=== PATIENT | female | born 1950 | race Asian ===

== ENCOUNTER 2018-06-29 22:34 | Inpatient (IN) | payer OTHER, MEDICAID ==
[~2018-06-29] VITALS: Ht 149.9 cm; Wt 61.7 kg
[2018-06-29 22:34] VITALS: BP_SYST 145
--- NOTE | 2018-06-29 22:34 | NUR ---
Patient to ER bed 4 to gown for evaluation. Side rails up.
--- NOTE | 2018-06-29 22:35 | NUR ---
ER Dr. Tesfaye at bedside examining patient.
[2018-06-29] MEDS ORDERED: NS 1000 ML IV.SOLN IV ONE (22:45)
[2018-06-29] MEDS ORDERED: ACETAMINOPHEN 325 MG TABLET PO ONE (22:45)
[2018-06-29] MEDS ORDERED: cefTRIAXone 1 GM IVPB PREMIX 50 ML IV ONE (22:45)
--- NOTE | 2018-06-29 23:34 | NUR ---
IVF initiated, 1L NS in ED. Per paramedics, pt received 1 Liter of NS.
--- NOTE | 2018-06-29 23:34 | NUR ---
Pt came in with 20 gauge to Right AC placed by paramedics.
--- NOTE | 2018-06-29 23:49 | NUR ---
Verbal order received from Dr. Tesfaye for indwelling catheter and to collect urine.
--- NOTE | 2018-06-29 23:58 | NUR ---
# 16 FR Crawford catheter with use of sterile technique. Immediate return of 650 cc dark yellow urine noted. Bedside drainage bag placed below level of bladder. Urine sample collected and sent to lab. Pt tolerated procedure well.
[2018-06-30 00:07] LABS: HEMATOCRIT 43.3 % (36-48); HEMOGLOBIN 13.7 g/dL (12.0-16.0); MEAN CORPUSCULAR HEMOGLOBIN 29 pg (27-31); MEAN CORPUSCULAR HGB CONC 32 % (32-36); MEAN CORPUSCULAR VOLUME 93 fL (79.0-98.0); RED BLOOD CELL COUNT(AUTO) 4.69 MIL/uL (4.2-6.2); RED CELL DISTRIBUTION WIDTH 14.5 % (9.0-15.0); WHITE BLOOD COUNT (AUTO) 13.8 K/uL (4.8-10.8)
[2018-06-30] MEDS ORDERED: cefTRIAXone 1 GM IVPB PREMIX 50 ML IV ONE (00:15)
[2018-06-30] MEDS ORDERED: AZITHROMYCIN 500 MG in NS 250 ML IV ONE (00:15)
[2018-06-30] MEDS ORDERED: AZITHROMYCIN 500 MG/VIAL (ZITHROMAX) IV ONE (00:23)
--- NOTE | 2018-06-30 00:36 | NUR ---
Medication was given, pt tolerated well. No adverse reaction, will continue to monitor.
[2018-06-30 00:48] LABS: CALCIUM 8.4 mg/dL (8.4-11.0); CREATININE 1.51 mg/dL (0.55-1.30)
[2018-06-30] MEDS ORDERED: CELE200C PO (00:51)
[2018-06-30] MEDS ORDERED: BACL20TA PO (00:51)
[2018-06-30] MEDS ORDERED: LIP10 PO (00:51)
[2018-06-30] MEDS ORDERED: OMEP40CA33 PO (00:51)
[2018-06-30] MEDS ORDERED: DIAZ5TAB4 PO (00:51)
[2018-06-30 00:52] LABS: ALBUMIN 2.3 g/dL (3.4-4.8); PROTHROMBIN TIME 10.2 SECS (9.5-12.5); TOTAL BILIRUBIN 0.5 mg/dL (0.0-1.0)
[2018-06-30 00:53] LABS: BILIRUBIN,URINE NEGATIVE (NEGATIVE); BLOOD, URINE 3+ (NEGATIVE); CLARITY/URINE CLOUDY (CLEAR); COLOR,URINE YELLOW (YELLOW); GLUCOSE,URINE NEGATIVE (NEGATIVE); KETONES,URINE NEGATIVE (NEGATIVE); LEUKOCYTE ESTERASE ,URINE 2+ (NEGATIVE); NITRITE, URINE POSITIVE (NEGATIVE); PH,URINE 5.5 (5.0-8.0); PROTEIN URINE 1+ (NEGATIVE); UROBILINOGEN,URINE 0.2 (0.2-1.0)
[2018-06-30 00:56] LABS: BACTERIA,URINE MANY /HPF (None Seen); WBC,URINE >100 /HPF (0-3)
[2018-06-30 00:57] LABS: COARSE GRANULAR CASTS,URINE 0-10 /LPF (None Seen); MUCUS,URINE None Seen /LPF (None Seen)
[2018-06-30 01:02] LABS: BASOPHILS % (AUTO) 0.1 % (0.0-2.0); EOSINOPHILS # (AUTO) 0.1 K/uL (0.0-0.4); EOSINOPHILS % (AUTO) 0.5 % (0.0-4.0); LYMPHOCYTES # (AUTO) 0.8 K/uL (1.0-5.5); LYMPHOCYTES % (AUTO) 5.9 % (20.5-51.5); MONOCYTES % (AUTO) 7.6 % (1.7-9.3); NEUTROPHILS # (AUTO) 11.9 K/uL (1.8-7.7); NEUTROPHILS % (AUTO) 85.9 % (40.0-70.0); PLATELET COUNT (AUTO) 97 K/uL (130-430)
--- NOTE | 2018-06-30 01:22 | NUR ---
Pt resting comfortably in bed, no acute distress. will continue to monitor.
--- NOTE | 2018-06-30 02:15 | NUR ---
Pt resting comfortably in hospital bed. No acute distress, will continue to monitor. Family at bedside.
[2018-06-30] MEDS ORDERED: ONDANSETRON HCL 4 MG/2 ML VIAL IVP PRN (03:30)
[2018-06-30] MEDS ORDERED: ACETAMINOPHEN 325 MG TABLET PO PRN (03:30)
--- NOTE | 2018-06-30 03:38 | NUR ---
Patient will be admitted to care of Dr. Pierce. Admitted to Telemetry unit. Will go to room 105B. Belongings list completed. Summary report printed. Report will be given at bedside.
[2018-06-30] MEDS ORDERED: METHOCARBAMOL 1000 MG/10 ML VIAL IM ONE (03:45)
[2018-06-30] MEDS ORDERED: METHOCARBAMOL 1000 MG/10 ML VIAL IVP ONE (03:45)
[2018-06-30] MEDS ORDERED: METHOCARBAMOL 1000 MG/10 ML VIAL ONE (03:52)
--- NOTE | 2018-06-30 04:02 | NUR ---
ADMISSION NOTE Received patient from ER via brit, received report from David PALMER. Patient admitted with diagnosis of PNA. Patient oriented to hospital routine, call light, toileting and safety-patient verbalized understanding.
[2018-06-30 04:08] VITALS: BP_SYST 120
--- NOTE | 2018-06-30 04:14 | NUR ---
Consultation called Reason for consultation: Elevated Troponin Was consult called: Y Person who was notified: Sewing Machine Repairer Helper 22 Consulting Physician: Raymon Mercedes Quality Rep Ordering Physician: Dr. Pierce
--- NOTE | 2018-06-30 04:15 | NUR ---
Consultation called Reason for consultation: Elevated Troponin Was consult called: Y Person who was notified: María Consulting Physician: Alcon Hansen Etl Application Developer Ordering Physician: Dr. Pierce
[2018-06-30] MEDS: 0.45% NACL 1,000 ML IV SCH ×2 (04:49→18:02)
--- NOTE | 2018-06-30 05:41 | NUR ---
RN ROUNDS PT RESTING COMFORTABLY IN BED WITH EYES CLOSED. NO SIGNS OF ACUTE DISTRESS, BREATHING EVEN AND EFFORTLESSLY TO O2 AT 2L VIA NASAL CANNULA. IVF INFUSING AT ORDERED RATE, NO SIGNS OF INFILTRATION AT IV SITE. REED CATHETER DRAINING WELL TO GRAVITY. SAFETY PRECAUTIONS IN PLACE, BED IN LOWEST POSITION, CALL LIGHT WITH PATIENT, SIDE RAILS UP X 3, BED ALARM ON, CLOSE TO NURSING STATION. WILL CONTINUE TO MONITOR.
--- NOTE | 2018-06-30 06:43 | NUR ---
CLOSING NOTE PT RESTING COMFORTABLY IN BED WITH EYES CLOSED, SYMMETRICAL RISE AND FALL OF CHEST, BREATHING IS EVEN AND UNLABORED TO O2 AT 2L VIA NC. NO ACUTE DISTRESS NOTED AT THIS TIME. ALL NEEDS MET DURING SHIFT. SAFETY PRECAUTIONS IN PLACE, BED IN LOWEST POSITION, CLOSE TO NURSING STATION, SIDE RAILS UP X 3, CALL LIGHT WITH PT, BED ALARM ON. WILL ENDORSE CARE TO DAY SHIFT RN.
--- NOTE | 2018-06-30 07:14 | NUR ---
Nutrition Update Mitchel Scale 13 noted. Pt admitted for pneumonia Diet: pureed diet BMI: 27.5 kg/m2 RD to follow per nutrition care standards.
--- NOTE | 2018-06-30 08:00 | NUR ---
initial notes rec patient with hob elevated. opens eyes and with o2 at 2 liters via nasal cannula. no sob noted. bed to the lowest position and side rails up and locked. call light within reached and close to the nurses station.
[2018-06-30] MEDS ORDERED: ENOXAPARIN SODIUM 40 MG/0.4 ML SYRINGE SUBCUT SCH (09:00)
--- NOTE | 2018-06-30 09:18 | NUR ---
Cardiac consult called: for Dr. Hatch, regarding acute [place], ordered by Dr. Liu, spoke with Shelly.
--- NOTE | 2018-06-30 09:37 | NUR ---
seen by dr soto at bedside.
[2018-06-30] MEDS: ASPIRIN 81 MG TAB.CHEW PO SCH (09:48)
[2018-06-30 09:55] LABS: CKMB RELATIVE INDEX 0.7 (0.0-2.9); CREATINE KINASE MB 20.8 ng/mL (0-3.6)
[2018-06-30 10:09] VITALS: BP_SYST 120
[2018-06-30] MEDS ORDERED: METOPROLOL TARTRATE 25 MG TABLET PO ONE (10:15)
[2018-06-30 12:10] VITALS: BP_SYST 121
[2018-06-30] MEDS: PIPERACILLIN/TAZO 3.375/DEX-IS 50 ML IV SCH ×3 (12:25→23:46)
--- NOTE | 2018-06-30 12:30 | NUR ---
rounds due meds given as ordered. was fed and ate good. turned repositioned for comfort. call light within reached.
[2018-06-30] MEDS: ALBUTEROL SULFATE 0.083% 2.5 MG/3 ML VIAL.NEB INH SCH ×2 (13:20→19:43)
[2018-06-30] MEDS: IPRATROPIUM BROM 0.5 MG/2.5 ML VIAL.NEB (ATROVENT) INH SCH ×2 (13:20→19:44)
[2018-06-30 16:04] LABS: CKMB RELATIVE INDEX 0.7 (0.0-2.9); CREATINE KINASE MB 20.4 ng/mL (0-3.6)
[2018-06-30 16:41] VITALS: BP_SYST 116
[2018-06-30] MEDS: LEVOFLOXACIN 500 MG/D5W 100 ML IV SCH (17:52)
--- NOTE | 2018-06-30 18:30 | NUR ---
closing notes in bed and 2 family members assisted patient to be at the edge of the bed for a few minutes and santino well. educated re fall /safety and understood well. bed to the lowest position ans side rails up and locked. no sob noted. pt on breathing tx as well.
[2018-06-30] MEDS: HEPARIN 25,000 UNITS/D5W 250ML 250 ML IV PRN (18:58)
[2018-06-30] MEDS ORDERED: HEPARIN SODIUM,PORCINE 2000 UNITS/0.4 ML BOLUS IVP PRN (19:00)
[2018-06-30] MEDS ORDERED: HEPARIN SODIUM,PORCINE 3000 UNITS/0.6 ML BOLUS IVP PRN (19:00)
--- NOTE | 2018-06-30 19:30 | NUR ---
Initial Notes Received handoff report from offgoing nurse at the bedside. Patient is awake and alert, resting comfortably in bed. Daughter (caregiver) and son-in-law at the bedside. No SOB, no acute distress, no signs of pain or facial grimacing noted. Bed is locked, in the lowest position, 2x side rails up, bed alarm is on. IV Heparin drip infusing at 10ml/hr. Call light within reach. Encouraged to call for assistance. Will continue with plan of care.
--- NOTE | 2018-06-30 19:44 | NUR ---
Paged Dr. Liu, early interventionist for Dr. Pierce dialed [phone][facility]
[2018-06-30 20:00] VITALS: BP_SYST 116
--- NOTE | 2018-06-30 20:02 | NUR ---
Family at the bedside stated they would like home medications for the patient. Spoke with Dr Liu regarding the medications the family would like, and Dr Liu stated to continue all of the medications the family requested; Valium 5mg PO BID, Baclofen 20mg PO BID, and Omeprazole 40mg QHS.
[2018-06-30] MEDS: BACLOFEN 10 MG TABLET PO SCH (20:33)
[2018-06-30] MEDS: OMEPRAZOLE 20 MG CAPSULE.DR (PriLOSEC) PO SCH (20:33)
[2018-06-30] MEDS: METOPROLOL TARTRATE 25 MG TABLET PO SCH (20:34)
[2018-06-30] MEDS: DIAZEPAM 5 MG TABLET (VALIUM) PO SCH (20:34)
[2018-06-30] MEDS ORDERED: cefTRIAXone 1 GM in D5W 50 ML IV SCH (21:00)
[2018-06-30] MEDS ORDERED: AZITHROMYCIN 500 MG in NS 250 ML IV SCH (22:00)
--- NOTE | 2018-06-30 22:33 | NUR ---
Patient is resting comfortably in bed, awake. No SOB, no acute distress, no complaints of pain at this time. Caregiver at the bedside. Bed is locked, in the lowest position, 2x side rails up, bed alarm is on. Call light is within reach. Encouraged to call for assistance.
[2018-07-01] VITALS: BP_SYST 121
--- NOTE | 2018-07-01 00:45 | NUR ---
Patient is resting comfortably in bed with eyes closed. No SOB, no acute distress, no signs of discomfort. Breathing is even and unlabored with visible chest rise and fall noted. Bed is locked, in the lowest position, 2x side rails up, bed alarm is on. Call light within reach.
[2018-07-01] MEDS: IPRATROPIUM BROM 0.5 MG/2.5 ML VIAL.NEB (ATROVENT) INH SCH ×4 (01:09→19:37)
[2018-07-01] MEDS: ALBUTEROL SULFATE 0.083% 2.5 MG/3 ML VIAL.NEB INH SCH ×4 (01:09→19:37)
--- NOTE | 2018-07-01 03:15 | NUR ---
Patient is resting comfortably in bed, awake and alert. Breathing even and unlabored with visible chest rise and fall noted. Bed is locked, in the lowest position, 2x side rails up, bed alarm is on. Call light is within reach. Encouraged patient to call for assistance.
[2018-07-01] MEDS: PIPERACILLIN/TAZO 3.375/DEX-IS 50 ML IV SCH ×4 (05:24→22:55)
--- NOTE | 2018-07-01 05:37 | NUR ---
Provided bed bath to the patient as needed. Patient is now clean and dry, resting comfortably in bed. No SOB, no acute distress, no signs of discomfort noted. Also provided patient water for hydration. Bed is locked, in the lowest position, 2x side rails up, bed alarm is on. Call light is within reach. Encouraged patient to call.
--- NOTE | 2018-07-01 07:23 | NUR ---
Closing Notes Handoff report given to offgoing nurse at the bedside. Patient is awake and alert, resting comfortably in bed. No SOB, no acute distress, no signs of pain or facial grimacing noted. Bed is locked, in the lowest position, 2x side rails up, bed alarm is on. Call light within reach. Fall and safety precautions maintained. All needs have been met during this shift. Addendum: 07/01/18 at 0738 by Nkechi Cardenas RN Correction* Handoff report given to ONCOMING dayshift nurse at the bedside.
[2018-07-01 08:00] VITALS: BP_SYST 116
[2018-07-01 08:00] LABS: CALCIUM 8.2 mg/dL (8.4-11.0); CREATININE 0.9 mg/dL (0.55-1.30)
--- NOTE | 2018-07-01 08:00 | NUR ---
initial notes rec patient awake with hob elevated. ivf infusing well on the r forearm and heparin on the r ac. no bleeding and infiltration noted. resp easy and unlabored with o2 at 2 liters via nasal cannula. fall/safety precaution observed. bed to the lowest position and side rails up and locked. call light within reached and patient is close to the nurses station. bed alarm is on as well. wii continue to monitor patient.
[2018-07-01 08:02] LABS: ALBUMIN 2.1 g/dL (3.4-4.8); TOTAL BILIRUBIN 0.8 mg/dL (0.0-1.0)
[2018-07-01] MEDS: ASPIRIN 81 MG TAB.CHEW PO SCH (08:18)
[2018-07-01] MEDS: METOPROLOL TARTRATE 25 MG TABLET PO SCH ×2 (08:18→20:24)
[2018-07-01] MEDS: BACLOFEN 10 MG TABLET PO SCH ×2 (08:19→20:24)
[2018-07-01] MEDS: DIAZEPAM 5 MG TABLET (VALIUM) PO SCH ×2 (08:19→20:24)
[2018-07-01 09:40] LABS: WHITE BLOOD COUNT (AUTO) 8.6 K/uL (4.8-10.8)
--- NOTE | 2018-07-01 09:40 | NUR ---
rounds pt was fed, hob elevated and santino well and with good appetite. due meds were crushed and given. seen by dr frost and with order.
[2018-07-01 09:41] LABS: HEMATOCRIT 36.5 % (36-48); HEMOGLOBIN 12.2 g/dL (12.0-16.0); MEAN CORPUSCULAR HEMOGLOBIN 30 pg (27-31); MEAN CORPUSCULAR HGB CONC 33 % (32-36); MEAN CORPUSCULAR VOLUME 91 fL (79.0-98.0); PLATELET COUNT (AUTO) 80 K/uL (130-430); RED BLOOD CELL COUNT(AUTO) 4.03 MIL/uL (4.2-6.2); RED CELL DISTRIBUTION WIDTH 13.9 % (9.0-15.0)
[2018-07-01 09:42] LABS: BASOPHILS % (AUTO) 0.1 % (0.0-2.0); EOSINOPHILS % (AUTO) 1.1 % (0.0-4.0); LYMPHOCYTES % (AUTO) 9.3 % (20.5-51.5); MONOCYTES % (AUTO) 10.6 % (1.7-9.3); NEUTROPHILS % (AUTO) 78.9 % (40.0-70.0)
[2018-07-01 09:43] LABS: EOSINOPHILS # (AUTO) 0.1 K/uL (0.0-0.4); LYMPHOCYTES # (AUTO) 0.8 K/uL (1.0-5.5); MONOCYTES # (AUTO) 0.9 K/uL (0.0-1.0); NEUTROPHILS # (AUTO) 6.8 K/uL (1.8-7.7)
[2018-07-01] MEDS: HEPARIN 25,000 UNITS/D5W 250ML 250 ML IV PRN ×2 (11:16→19:16)
[2018-07-01 12:43] VITALS: BP_SYST 109
[2018-07-01] MEDS: 0.45% NACL 1,000 ML IV SCH (16:06)
[2018-07-01 16:52] VITALS: BP_SYST 104
[2018-07-01] MEDS: LEVOFLOXACIN 500 MG/D5W 100 ML IV SCH (16:54)
--- NOTE | 2018-07-01 19:00 | NUR ---
closing notes resting qiuetly at this time. no sob noted.hiob slightly elevated. bd to the lowest position and side rails up and locked. pt close to the nurses station. family at bedside.
--- NOTE | 2018-07-01 19:30 | NUR ---
Initial Notes Received handoff report from offgoing dayshift nurse at the bedside. Patient is resting comfortably in bed with eyes closed. No SOB noted. Breathing is even and unlabored with visible chest rise and fall. No acute distress, no signs of pain or facial grimacing noted. Sharon Padilla (Sister) at the bedside, and other family at the bedside. IV heparin infusing at the ordered rate per protocol, see eMAR for details. Bed is locked, in the lowest position, 2x side rails up, bed alarm is on. Call light is within reach. Encouraged family to call for assistance. Will continue with plan of care.
[2018-07-01 20:00] VITALS: BP_SYST 129
--- NOTE | 2018-07-01 20:15 | NUR ---
RT at the bedside to provide breathing treatment for the patient. Educated family regarding medication Valium. Family verbalized understanding at this time.
[2018-07-01] MEDS: OMEPRAZOLE 20 MG CAPSULE.DR (PriLOSEC) PO SCH (20:24)
--- NOTE | 2018-07-01 21:54 | NUR ---
Patient is resting comfortably in bed with eyes closed. No SOB, no acute distress, no signs of pain or facial grimacing. Breathing even and unlabored with visible chest rise and fall noted. Tolerating 2L NC with good oxygen saturation. Call light is within reach.
--- NOTE | 2018-07-01 23:37 | NUR ---
Patient resting comfortably in bed, awake and alert. No SOB, no acute distress, no complaints of pain. IVF infusing at the ordered rate, see eMAR. Bed is locked, in the lowest position, 2x side rails up, bed alarm is on. Call light is within reach. Encouraged patient to call.
[2018-07-02] VITALS: BP_SYST 106
[2018-07-02] MEDS: ALBUTEROL SULFATE 0.083% 2.5 MG/3 ML VIAL.NEB INH SCH ×4 (01:21→19:56)
[2018-07-02] MEDS: IPRATROPIUM BROM 0.5 MG/2.5 ML VIAL.NEB (ATROVENT) INH SCH ×4 (01:22→19:56)
--- NOTE | 2018-07-02 03:09 | NUR ---
Patient is resting comfortably in bed with eyes closed. Breathing even and unlabored with visible chest rise and fall seen. No SOB, no acute distress, no signs of pain or facial grimacing noted. Heparin drip infusing at the ordered rate per protocol, see eMAR. Bed is locked, in the lowest position, 2x side rails up, bed alarm is on. Call light is within reach.
[2018-07-02] MEDS: PIPERACILLIN/TAZO 3.375/DEX-IS 50 ML IV SCH ×3 (05:20→18:05)
--- NOTE | 2018-07-02 05:30 | NUR ---
Patient is resting comfortably in bed, awake and alert. No SOB, no acute distress, no complaints of pain. Bed is locked, in the lowest position, 2x side rails up, bed alarm is on. IV site intact, dressing clean and dry, flushes well, infusing antibiotics at ordered rate, see eMAR. Call light within reach.
--- NOTE | 2018-07-02 07:30 | NUR ---
Opening Note: Patient laying in bed resting. Patient denies pain and discomfort. Breathing is even and unlabored with no distress noted. IV patent and intact running IVF per MD orders. Safety precautions in place; bed in lowest position, wheels locked, side rails x3, bed alarm activated and call light within reach. No needs at this time. Will continue to monitor.
[2018-07-02 08:24] VITALS: BP_SYST 116
[2018-07-02] MEDS: BACLOFEN 10 MG TABLET PO SCH ×2 (08:30→20:37)
[2018-07-02] MEDS: ASPIRIN 81 MG TAB.CHEW PO SCH (08:30)
[2018-07-02] MEDS: DIAZEPAM 5 MG TABLET (VALIUM) PO SCH ×2 (08:30→20:37)
[2018-07-02] MEDS: METOPROLOL TARTRATE 25 MG TABLET PO SCH ×2 (08:30→20:38)
[2018-07-02] MEDS: 0.45% NACL 1,000 ML IV SCH (08:30)
--- NOTE | 2018-07-02 10:04 | NUR ---
Rounds: Patient in bed resting, repositioned for comfort. No distress notes. Will continue to monitor.
--- NOTE | 2018-07-02 12:07 | NUR ---
Rounds: Patient in bed resting, repositioned for comfort. IV running with no signs of infiltration. Morning medications tolerated well. Safety precautions in place and call light within reach. No needs at this time. Will continue to monitor.
[2018-07-02 12:43] VITALS: BP_SYST 97
--- NOTE | 2018-07-02 14:10 | NUR ---
Rounds: Patient in bed resting, repositioned for comfort. No distress notes. Will continue to monitor.
--- NOTE | 2018-07-02 16:07 | NUR ---
Rounds: Patient in bed resting, repositioned for comfort. IV running with no signs of infiltration. Safety precautions in place and call light within reach. No needs at this time. Will continue to monitor.
[2018-07-02 16:11] VITALS: BP_SYST 108
[2018-07-02] MEDS: LEVOFLOXACIN 500 MG/D5W 100 ML IV SCH (17:14)
[2018-07-02] MEDS: ALBUTEROL SULFATE 0.083% 2.5 MG/3 ML VIAL.NEB INH PRN (18:04)
--- NOTE | 2018-07-02 18:14 | NUR ---
Closing Note: Patient laying in bed resting. Patient denies pain and discomfort. Breathing is even and unlabored with no distress noted. IV patent and intact running IVF per MD orders. Crawford catheter patent and intact with visible urine output. Safety precautions in place; bed in lowest position, wheels locked, side rails x3, bed alarm activated and call light within reach. All needs met. Will endorse plan of care to NOC, nurse.
--- NOTE | 2018-07-02 19:55 | NUR ---
Initial Notes Handoff report received from offgoing nurse at the bedside. Patient is resting comfortably in bed awake and alert. Platform Supervisor currently at the bedside to do doppler study. Family is at the bedside. No SOB, no acute distress, no signs of pain or facial grimacing. Currently on 2L oxygen with good saturation. Breathing is even and unlabored with visible chest rise and fall noted. Bed is locked, in the lowest position, 2x side rails up, bed alarm is on. Call light is within reach. Will continue with plan of care.
[2018-07-02 20:00] VITALS: BP_SYST 132
[2018-07-02] MEDS: OMEPRAZOLE 20 MG CAPSULE.DR (PriLOSEC) PO SCH (20:37)
--- NOTE | 2018-07-02 22:33 | NUR ---
Patient resting comfortably in bed with eyes opened. No SOB, no acute distress, no signs of pain or facial grimacing noted. Tolerating O2 via nasal canula with good O2 Sat. Bed is locked, in the lowest position, 2x side rails up, bed alarm is on. Call light is within reach.
--- NOTE | 2018-07-03 | NUR ---
Patient resting in bed, awake. No complaints of discomfort at this time. Stable.
[2018-07-03] MEDS: IPRATROPIUM BROM 0.5 MG/2.5 ML VIAL.NEB (ATROVENT) INH SCH ×4 (00:47→19:40)
[2018-07-03] MEDS: ALBUTEROL SULFATE 0.083% 2.5 MG/3 ML VIAL.NEB INH SCH ×4 (00:47→19:40)
[2018-07-03 00:55] VITALS: BP_SYST 132
[2018-07-03] MEDS: PIPERACILLIN/TAZO 3.375/DEX-IS 50 ML IV SCH ×2 (00:59→05:19)
--- NOTE | 2018-07-03 02:45 | NUR ---
Patient is resting comfortably in bed, sleeping. No SOB, no acute distress, no signs of pain or facial grimacing noted. Breathing even and unlabored with visible chest rise and fall noted. Bed is locked, in the lowest position, 2x side rails up, bed alarm is on. Call light within reach.
--- NOTE | 2018-07-03 05:00 | NUR ---
Patient is resting comfortably in bed, awake. No SOB, no acute distress, no signs of pain or facial grimacing noted. Bed is locked, in the lowest position, 2x side rails up, bed alarm is on. Call light within reach. Tolerating O2 via nasal cannula with good O2 saturation.
--- NOTE | 2018-07-03 07:14 | NUR ---
Closing Notes Handoff report given to oncoming dayshift nurse at the bedside. Patient is resting comfortably in bed with eyes closed. No SOB, no acute distress, no signs of pain at this time. IVF infusing at the ordered rate, see eMAR. Bed is locked, in the lowest position, 2x side rails up, bed alarm is on. Call light is within reach. Fall and safety precautions maintained. All needs have been met during this shift.
--- NOTE | 2018-07-03 07:15 | NUR ---
Opening Note: Patient laying in bed resting. Patient denies pain and discomfort. Breathing is even and unlabored with no distress noted. IV patent and intact running IVF per MD orders. Crawford catheter patent and intact with visible urine output. Safety precautions in place; bed in lowest position, wheels locked, side rails x3, bed alarm activated and call light within reach. No needs at this time. Will continue to monitor.
[2018-07-03 08:02] VITALS: BP_SYST 121
[2018-07-03] MEDS: ASPIRIN 81 MG TAB.CHEW PO SCH (08:50)
[2018-07-03] MEDS: BACLOFEN 10 MG TABLET PO SCH ×2 (08:50→21:03)
[2018-07-03] MEDS: 0.45% NACL 1,000 ML IV SCH (08:50)
[2018-07-03] MEDS: DIAZEPAM 5 MG TABLET (VALIUM) PO SCH ×2 (08:50→21:02)
[2018-07-03] MEDS: METOPROLOL TARTRATE 25 MG TABLET PO SCH ×2 (08:50→21:03)
[2018-07-03 09:23] LABS: CHOLESTEROL 138 mg/dL (<200); HDL CHOLESTEROL 27 mg/dL (>55); LDL CHOLESTEROL 92 mg/dL (<100); TRIGLYCERIDES 108 mg/dL (30-150)
--- NOTE | 2018-07-03 09:50 | NUR ---
DC Planning: Called from Andrew/KERMIT he has question with the discharge plan to home today. Andrew concerned about pt has congestion and may need suctioning. Andrew stated air twist operator at home and himself are able to manage the oxygen to meet the patient's needs. " He has gone this route before ". He confirmed to take pt home instead of going to snf. Cm informed him that the pt. will need home o2 and nebulizer arrangement with insurance approval.This due low PCo2 result this am. The discharge is on hold for today per dr. Liu. Addendum: 07/03/18 at 1105 by Raya Wu RN Jessie phone # [phone]. Addendum: 07/03/18 at 1320 by Raya Wu RN >> S/w dr. Liu regarding Andrew request for urologist consultation for bladder issues which dr. Liu had told him to f/u as out patient. Andrew requested the urologist to see the pt. before discharge instead of f/u as out patient. Per dr. Liu " the urology consultation is not urgent and urology won't take pt's insurance." Andrew made aware and he agreed to take pt. for outpatient urologist f/u
--- NOTE | 2018-07-03 10:01 | NUR ---
Rounds: Patient in bed resting, repositioned for comfort. No distress notes. Will continue to monitor.
--- NOTE | 2018-07-03 10:04 | NUR ---
Paging Dr. Liu: Paging Dr. Liu regarding ABG results. Family wants patient to go home with home health, patient will need O2 at home. Will inform Dr. Liu and await orders. Awaiting callback.
--- NOTE | 2018-07-03 10:18 | NUR ---
Spoke to Dr. Liu: Spoke to Dr. Liu, per Dr. Liu hold the discharge and have case management arrange oxygen and a nebulizer machine for home.
[2018-07-03 10:35] VITALS: BP_SYST 121
--- NOTE | 2018-07-03 11:32 | NUR ---
DC Crawford: Crawford catheter removed per MD orders. Patient tolerated well.
[2018-07-03 12:02] VITALS: BP_SYST 109
--- NOTE | 2018-07-03 14:25 | NUR ---
Rounds: Patient in bed resting. No signs of distress. Repositioned for comfort. No needs at this time. Will continue to monitor.
[2018-07-03 16:02] VITALS: BP_SYST 108
--- NOTE | 2018-07-03 16:20 | NUR ---
Rounds: Patient in bed resting, repositioned for comfort. IV running with no signs of infiltration. Patient changed. New sheets and gown provided. Safety precautions in place and call light within reach. No needs at this time. Will continue to monitor.
[2018-07-03] MEDS: LEVOFLOXACIN 500 MG/D5W 100 ML IV SCH (16:44)
--- NOTE | 2018-07-03 18:20 | NUR ---
IV RE-INSERTION: Complaining of pain to IV site. Restarted on left forearm 22g. Successful after 2 attempts. Resumed current IVF of 0.45 NS and regulated @ 40 per hour. Will observe for any signs of infiltration.
--- NOTE | 2018-07-03 18:42 | NUR ---
Closing Note: Patient laying in bed resting. Family at bedside. Patient denies pain and discomfort. Breathing is even and unlabored with no distress noted. IV patent and intact running IVF per MD orders. Safety precautions in place; bed in lowest position, wheels locked, side rails x3, bed alarm activated and call light within reach. All needs met. Will endorse plan of care to NOC, nurse.
--- NOTE | 2018-07-03 19:30 | NUR ---
Initial Note Received patient awake and nonverbal. Patient makes sounds and able to move her head. Family at the bedside. No SOB or grimacing noted. On O2 at 2L/min via NC and has HHN scheduled. IVF infusing. Incontinent x2. Skin intact. BUE and BLE mild edema noted-elevated on pillows. Left leg redness noted and warm to touch, family aware. Needs attended. Bed at lowest position and bed alarm on at all times. Call light within reach. Care and monitoring will be provided. Fall and skin precautions observed. Kept warm and comfortable.
[2018-07-03 20:00] VITALS: BP_SYST 147
--- NOTE | 2018-07-03 21:00 | NUR ---
RN Note Due meds crushed and given with apple sauce. Tolerated well. Able to drink half a cup of water. Repositioned. Had small BM. Skin and incontinence care provided. Kept clean, dry and comfortable. Family still at the bedside.
[2018-07-03] MEDS: OMEPRAZOLE 20 MG CAPSULE.DR (PriLOSEC) PO SCH (21:03)
--- NOTE | 2018-07-04 | NUR ---
RN Note Sleeping at this time. No SOB or grimacing noted.
--- NOTE | 2018-07-04 01:15 | NUR ---
RN Note Patient's son called and asked about the patient's latest VS. Patient is awake but no grimacing noted. Placed back nasal cannula. Nasal cannula found on the level of the mouth at times. Repositioned. Kept comfortable.
[2018-07-04 01:29] VITALS: BP_SYST 121
[2018-07-04] MEDS: ALBUTEROL SULFATE 0.083% 2.5 MG/3 ML VIAL.NEB INH SCH ×4 (01:35→19:50)
[2018-07-04] MEDS: IPRATROPIUM BROM 0.5 MG/2.5 ML VIAL.NEB (ATROVENT) INH SCH ×4 (01:35→19:50)
--- NOTE | 2018-07-04 03:20 | NUR ---
RN Note Asleep but arousable. No signs of acute distress. Repositioned. Kept warm and comfortable.
--- NOTE | 2018-07-04 06:19 | NUR ---
End Note Afebrile. VS stable. No SOB or grimacing noted throughout the night. scheduled HHN given and suctioned was done. Feeder. Had small BM, skin and incontinence care provided. IVF infusing. Generalized edema-elevated on pillows. Heels off bed. Care and monitoring provided per protocol. Needs attended. Call light within reach. Bed alarm on and at lowest position at all times. Fall and aspiration precautions observed. Will be DC home today after CM arrange for oxygen and nebulizer machine at home. Kept warm and comfortable.
--- NOTE | 2018-07-04 07:29 | NUR ---
RT in room with patient
--- NOTE | 2018-07-04 07:50 | NUR ---
OPENING NOTE patient is resting in bed, RT is present, A&Ox1, assessment completed, educated on plan of care and call light system, patient had no verbal response and just grunted, bed in the lowest position, bed alarm on, call light within reach, three side rails up, IV clean and intact, bed close to nurse station, fall and aspiration precautions in place.
[2018-07-04 08:54] VITALS: BP_SYST 140
[2018-07-04] MEDS: BACLOFEN 10 MG TABLET PO SCH ×2 (09:02→21:15)
[2018-07-04] MEDS: DIAZEPAM 5 MG TABLET (VALIUM) PO SCH ×2 (09:02→21:17)
[2018-07-04] MEDS: METOPROLOL TARTRATE 25 MG TABLET PO SCH ×2 (09:02→21:16)
[2018-07-04] MEDS: ASPIRIN 81 MG TAB.CHEW PO SCH (09:02)
--- NOTE | 2018-07-04 09:05 | NUR ---
medications patient is resting in bed, educated on medication uses and side effects, patient had no verbal response and just grunted, medications crushed and given with applesauce, bed in the lowest position, bed alarm on, call light within reach, three side rails up, IV clean and intact, bed close to nurse station, fall and aspiration precautions in place.
[2018-07-04] MEDS: 0.45% NACL 1,000 ML IV SCH (09:47)
--- NOTE | 2018-07-04 09:50 | NUR ---
bed bath patient is resting in bed, had a BM, assisted PARTITION SETTER with bed bath, bed in the lowest position, bed alarm on, call light within reach, three side rails up, IV clean and intact, bed close to nurse station, fall and aspiration precautions in place.
[2018-07-04] MEDS ORDERED: METO25TA6 PO (10:45)
[2018-07-04] MEDS ORDERED: ASPI-1155 PO (10:46)
[2018-07-04] MEDS ORDERED: LEVO250T2 PO (10:48)
[2018-07-04] MEDS ORDERED: ALBMDI INH (10:51)
--- NOTE | 2018-07-04 11:19 | NUR ---
RT on unit informed about doing a breathing treatment for patient because her O2 is fluctuating and she is gargling
--- NOTE | 2018-07-04 11:22 | NUR ---
RT in room with patient
--- NOTE | 2018-07-04 11:22 | NUR ---
Called CM in regards to update on Home health, discharge planning is still working on it
[2018-07-04 12:13] VITALS: BP_SYST 129
--- NOTE | 2018-07-04 12:45 | NUR ---
ROUNDS patient is resting in bed, not showing any signs of respiratory depression, O2 fluctuating from 88-92, patient had no verbal response and just grunted, bed in the lowest position, bed alarm on, call light within reach, three side rails up, IV clean and intact, bed close to nurse station, fall and aspiration precautions in place.
--- NOTE | 2018-07-04 12:48 | NUR ---
Dr Ricardo sadler in regards to patient's O2 sat Addendum: 07/04/18 at 1331 by Kristy Garay RN Dr Silva called back, said to titrate O2 to keep sat between 88-93%, and to tell [facility] about having portable oxygen delivered to hospital so family can have it when they take her home
--- NOTE | 2018-07-04 13:25 | NUR ---
Rt in room with patient
--- NOTE | 2018-07-04 13:31 | NUR ---
spoke to ALEX about family's preference to take her home and avoid ambulance, ALEX said she will have arranged a portable O2 to be delivered to hospital for family to have
--- NOTE | 2018-07-04 16:00 | NUR ---
ROUNDS patient is resting in bed, O2 fluctuating from 88-92, patient had no verbal response and just grunted, gargling is heard when breathing, bed in the lowest position, bed alarm on, call light within reach, three side rails up, IV clean and intact, bed close to nurse station, fall and aspiration precautions in place.
[2018-07-04 16:04] VITALS: BP_SYST 110
--- NOTE | 2018-07-04 16:10 | NUR ---
RT called in regards to breathing treatment
[2018-07-04] MEDS: ALBUTEROL SULFATE 0.083% 2.5 MG/3 ML VIAL.NEB INH PRN (16:15)
--- NOTE | 2018-07-04 16:22 | NUR ---
RT in room with patient Addendum: 07/04/18 at 1622 by Kristy Garay RN [id number] when entered patient's room
--- NOTE | 2018-07-04 16:23 | NUR ---
Day called [phone] spoke with Camacho in regards to oxygen delivery for home and hospital, I called Andrew the family about giving them a call to discuss about the oxygen setup at home and delivery to hospital
[2018-07-04] MEDS: LEVOFLOXACIN 500 MG/D5W 100 ML IV SCH (16:59)
--- NOTE | 2018-07-04 17:00 | NUR ---
[facility] spoke with patient care representative [phone], said estimate time of oxygen delivery is 1900, [facility] will be educated family and patient and be visiting the home [phone]
--- NOTE | 2018-07-04 18:05 | NUR ---
ROUNDS patient is resting in bed, no sign of respiratory depression, patient had no verbal response and just grunted, bed in the lowest position, bed alarm on, call light within reach, three side rails up, IV clean and intact, bed close to nurse station, fall and aspiration precautions in place.
--- NOTE | 2018-07-04 19:20 | NUR ---
closing note patient is resting in bed, no sign of respiratory depression, patient had no verbal response and just grunted, bed in the lowest position, bed alarm on, call light within reach, three side rails up, IV clean and intact, bed close to nurse station, fall and aspiration precautions in place. [employer] delivered portable oxygen and will be on his way to deliver other supplies to the home, family is made aware and will call once they are on their way, [facility] at bedside and is aware of the discharge plan and the contact information for home health and medical supply company.
--- NOTE | 2018-07-04 19:45 | NUR ---
ROUNDS PATIENT RESTING COMFORTABLY IN BED, NOT IN DISTRESS, VITALS STABLE, NO PAIN AT THIS TIME, NON VERBAL. ASSESSMENT DONE AND DOCUMENTED. SEE FLOWSHEET. PATIENT DISCHARGE HOME OREDERED, WAITING FOR FAMILY TO PICK HER UP WHO ARE ALSO WAITING FOR THE OXYGEN TANK AND NEBULIZER TO BE DELIVERED AT HOME. NEEDS ATTENDED TO. SAFETY MEASURES IN PLACED. BED IN LOW AND LOCKED POSITION. CALL LIGHT PACED WITHIN REACH.
--- NOTE | 2018-07-04 20:11 | NUR ---
PAGED DR CHEN (DR. ELIZABETH DYER ASSISTANT). TALK TO CHRISTIANO.
[2018-07-04 20:16] VITALS: BP_SYST 137
--- NOTE | 2018-07-04 21:00 | NUR ---
MEDICATION DUE MEDICATIONS GIVEN CRUSHED WITH APPLESAUCE, TOLERATED WELL. WILL CONTINUE TO MONITOR.
[2018-07-04] MEDS: OMEPRAZOLE 20 MG CAPSULE.DR (PriLOSEC) PO SCH (21:16)
--- NOTE | 2018-07-04 22:05 | NUR ---
DR. ELIZABETH CALLED AND SPOKE TO DR. ELIZABETH, PATIENT'S FAMILY NEEDS PRESCRIPTION FOR NEBULES FOR BREATHING TREATMENT AT HOME. WILL CONTINUE TO MONITOR.
--- NOTE | 2018-07-04 23:30 | NUR ---
CLOSING NOTES PATIENT DISCHARGED HOME ORDERED WITH FAMILY WITH STABLE VITALS SIGNS. OXYGEN AND NEBULIZER ALREADY DELIVERED AT HOME AND FAMILY WAS ABLE TO HAVE THE NEBULES FOR BREATHING TREATMENT TAKEN AT [facility] AFTER DR. ELIZBAETH CALLED [facility] IN [place], PATIENT'S PREFERRED PHARMACY. ALL NEEDS MET.
--- NOTE | 2018-07-05 09:54 | NUR ---
DC Planning: late entry for 07/04/18: The discharge was on hold yesterday dt abnormal abg's that indicated pt. will need home o2 and nebulizer. ALEX contacted [facility]Lee[facility] # [phone] to assist arranging the DME's . [facility] verified the eligibility and arranged the DME's as requested. ALEX notified KERMIT Shah to expect the home o2 set up this evening from [facility] , once the set up was completed at home and the portable o2 tank delivered to the pt. bedside. Then the pt. may go home with portable o2 tank. -- SPENCER Wagner made aware. >> CM faxed Med list, abg results, VS reports to [facility] for the DME set up. .
--- NOTE | 2018-07-07 16:08 | NUR ---
DISCHARGE FOLLOW UP PHONE CALL MOHS SURGEON/GENERAL DERMATOLOGIST phoned pt and spoke with sister, Harleen. Per sister, pt is doing fairly but had some concerns about her discharge prescriptions. Pt's sister stated that her discharge order stated O2 on 4 litres but HH came and was only given 2 litres. Pt's sister stated pt was also given mouthpiece for her nebulizer, which would not be ideal for her due to pt's disability, but a mask, which the sister purchased herself. MOHS SURGEON/GENERAL DERMATOLOGIST phoned Harish @ [phone], CM of [facility] who made HH arrangements for pt who asked for order and notes to be faxed over for her to review. Harish also stated she will order the mask for pt's nebulizer. Pt's sister also was concern about obtaining medical records for pt's PCP, informed pt of the process and sister understood. Pt's sister was able to fill her prescription and no PCP follow up appointment was made at this time. No further SS needs identified at this time but MOHS SURGEON/GENERAL DERMATOLOGIST encouraged family to call SS if additional questions/concerns arise.
== END 2018-07-04 23:30 | disposition home health service (06) | DRG 871 ==
LOC: SED 22:34 → STU 06-30 03:18 → SMU 07-03 10:48
PROVIDERS: ADMIT Internal Medicine; ATTEND Internal Medicine
DX: A41.51 Sepsis due to Escherichia coli [E. coli] (principal); I21.A1 Myocardial infarction type 2; J69.0 Pneumonitis due to inhalation of food and vomit; J96.01 Acute respiratory failure with hypoxia; N39.0 Urinary tract infection, site not specified; N17.9 Acute kidney failure, unspecified; F03.90 Unspecified dementia, unspecified severity, without behavioral disturbance, psychotic disturbance, mood disturbance, and anxiety; E78.5 Hyperlipidemia, unspecified; F79 Unspecified intellectual disabilities; Z66 Do not resuscitate; G80.9 Cerebral palsy, unspecified; Z79.899 Other long term (current) drug therapy; Z86.73 Personal history of transient ischemic attack (TIA), and cerebral infarction without residual deficits; Z74.01 Bed confinement status
CPT/HCPCS: 36415; 36600; 71045; 73560-TC; 80053; 80061; 81000-TC; 82550-TC; 82553-TC; 82803-TC; 83605; 83880; 84484; 85025; 85610-TC; 85730-TC; 87040-TC; 87070-TC; 87086; 87186-TC; 87205-TC; 93005; 93306; 93971; 94640; 94760; 96365; 96367; 96375; 99285; G0378; J0456; J0696; J1644; J1956; J2543; J2800; J7050; J7613